=== PATIENT | male | born 1975 | race Caucasian/White ===

== ENCOUNTER 2025-05-02 09:54 | Observation (INO) | payer OTHER ==
[2025-05-01 10:49] LABS: IMMATURE GRANULOCYTE ABSOLUTE 0.02 K/uL (0-1); NUCLEATED RED BLOOD CELLS 0.0 % (0.0-0.19); PLATELET COUNT (AUTO) 204 K/uL (130-400); RED BLOOD CELL COUNT(AUTO) 4.79 MIL/uL (4.50-6.20); RED CELL DISTRIBUTION WIDTH 13.3 % (11.0-15.5); WHITE BLOOD COUNT (AUTO) 5.7 K/uL (4.8-10.8)
[2025-05-01 10:57] LABS: CREATININE 1.0 mg/dL (0.5-1.3); GLOMERULAR FILTR. RATE CALC 93.0 mL/min (>90); GLUCOSE,RANDOM 101.0 mg/dL (70-105); SODIUM SERUM 139.0 mmol/L (136-145); UREA NITROGEN, BLOOD 18.0 mg/dL (7-18)
[2025-05-01 10:58] LABS: APPEARANCE,URINE CLEAR (CLEAR); GLUCOSE, URINE (UA) NEGATIVE (NEGATIVE); LEUKOCYTE ESTERASE ,URINE NEGATIVE Leu/uL (NEGATIVE); NITRATE,URINE NEGATIVE (NEGATIVE); OCCULT BLOOD,URINE NEGATIVE (NEGATIVE)
[2025-05-01 10:59] LABS: INR 0.99 (0.85-1.15)
[2025-05-01 11:00] LABS: ADD UA MICROSCOPIC NO
[2025-05-01 11:39] VITALS: BP 144/90; PULSE 72; RESP 18; TEMP 98.6
--- NOTE | 2025-05-01 12:24 | NUR ---
PREOP LORETO RT INSTRUCTED PT ON INCENTIVE SPIROMETRY
[~2025-05-02] VITALS: Ht 190.5 cm; Wt 113.9 kg
[2025-05-02] VITALS (27 sets, daily range): BP systolic 96–132; BP diastolic 55–79; PULSE 68–107; RESP 12–19; TEMP 96.8–98.1; O2SAT 98
[~2025-05-02 09:54] MED LIST: ACET-2743 PO; ASPI-1443 PO; ATOR40TA71 PO; EMTR1TAB20 PO; ESCI-8 PO; HYDR-4060 PO; LISI10TA24 PO; MILK THISTLE PO
[2025-05-02] MEDS: LACTATED RINGERS 1000ML 1,000 ML IV ONE (10:04)
[2025-05-02] MEDS ORDERED: PROMETHAZINE HCL 25 MG/ML 1ML AMPULE IM PRN (11:00)
[2025-05-02] MEDS ORDERED: TRANEXAMIC ACID 1000MG/10ML ONE (12:46)
[2025-05-02] MEDS ORDERED: BUPIvacaine HCL/EPINEPHrine/PF 0.25% 10ML VIAL IJ ONE (12:47)
[2025-05-02] MEDS ORDERED: THROMBIN-JMI 5000 UNIT/VIAL TP ONE (12:47)
[2025-05-02] MEDS ORDERED: NEOSTIGMINE METHYLSULFATE 1MG/ML IV ONE (13:03)
[2025-05-02] MEDS ORDERED: GLYCOPYRROLATE 0.2 MG/ML 5 ML VIAL ONE (13:03)
[2025-05-02] MEDS ORDERED: LIDOCAINE PF 100MG/5ML (2%) SYRINGE 5ML ONE (13:03)
[2025-05-02] MEDS ORDERED: MIDAZOLAM HCL 1 MG/ML 2ML VIAL ONE (13:04)
--- NOTE | 2025-05-02 15:44 | OP ---
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 Chronic synovitis] IMPLANTS: [Alpine cemented patella size 40 by a tender 11 mm of] PROCEDURE: [Right knee arthrotomy, synovectomy and patellar resurfacing] ESTIMATED BLOOD LOSS: [50 mL] INDICATIONS: [The patient is a 49-year-old male with a history posttraumatic arthritis that underwent a cemented total knee arthroplasty without patellar resurfacing [place]. The patient presented to our office with severe pain to the right knee that was impairing his activities of the living a requiring the assistance of crutches to ambulate. The x-rays revealed the presence of severe wear of the patella with direct bone metal contact in the x-rays. The is brought to the operating room for patellar resurfacing. Procedure understood, risks, benefits and possible complications and the patient agreed to sign the consent form] DESCRIPTION OF PROCEDURE: [After adequate general anesthesia was achieved the patient's right lower extremity was prepped and draped in the usual manner previous cement of the tourniquet in the proximal thigh. The extremity was elevated and exsanguinated with a an Esmarch band and the tourniquet was inflated to 250 mmHg. The Esmarch band was removed and then we proceeded to address the anterior surgical scar with the patient were an incision was carried over almost the same length through the skin followed by dissection of the subcutaneous tissue the patella, quadriceps tendon and patellar retinaculum were exposed and we proceeded to do a medial parapatellar incision noticing immediately that the patient has a very significant chronic synovitis and scar tissue in the area. It distally we proceeded to remove all the chronic scar present in the area around the patella, distal femur and medial and lateral gutters. After this was achieved we were able to homero the patella and all the chronic synovial tissue was removed from the surrounding noticing the patient had complete were down to the bone in the lateral facet and a small medial facet. Evaluation of the remaining of the joint revealed that the components were adequately fixed the tibial liner demonstrated no damage and there was no laxity in valgus or varus. After the synovectomy and a scar excision was completed we proceeded to homero the patella and secured with a clamp. We measured its thickness and then measured the diameter and this measured approximately 43-45 mm. Using the ClairMail asymmetric patella which is a size 40 to cover most of the articular surface we proceeded to 1st do the cut with the oscillating saw removing the articular surface and portion of bone leaving a clean and smooth surface of healthy bone. The size 40 patellar guide was then used to make three drill holes in the patella surface and then we proceeded to apply the trial patella which fit adequately leaving just a very small amount of bone exposed medially and laterally. The patella was then reduced and the range of motion was checked noticing to be adequate with no patellar tilt or tightness present. The component was then removed irrigation was carried down of the joint and we proceeded to repair cement in the back table which was then placed in the bone surface and then the patellar component was inserted and secured with a patellar clamp which was left in place until the cement dried. Once this occur the tourniquet was deflated and the minor bleeders were controlled with the use of the Bovie cautery. Irrigation of the wound was then made with Betadine solution followed by jet lavage with the antibiotic irrigation. Then we proceeded to close the wound with a approximation of the quadriceps tendon, patellar retinaculum and patellar tendon retinaculum with Vicryl sutures in a crossed fashion. The subcutaneous tissue was then closed with 2-0 Monocryl inverted stitches and the skin with a stay in a approximated with 3-0 Monocryl subcuticularly. A suction dressing was then applied to cover the wound a connected to a battery. After this the drapes were removed anesthesia proceeded to do a regional block with the use of ultrasound. After this was completed the patient was transferred to his bed and taken to recovery room for follow-up by anesthesia after being awakened and extubated. There were no complications during the procedure.] TAMIKA CORTEZ MD May 02, 2025 15:44
[2025-05-02] MEDS ORDERED: PoTASSium chloRIDE 20MEQ ER 20 MEQ ERTAB PO PRN (16:00)
[2025-05-02] MEDS ORDERED: PoTASSium chl 10% ELIXIR 20MEQ 20 MEQ/15 ML UDCUP PO PRN (16:00)
[2025-05-02] MEDS: 0.9%NACL 1000ML 1,000 ML IV SCH (16:00)
[2025-05-02] MEDS: FAMOTIDINE 20MG TAB PO SCH (20:51)
[2025-05-02] MEDS: ASPIRIN 81 MG EC TAB PO SCH (20:52)
--- NOTE | 2025-05-02 23:53 | NUR ---
Pt. c/o being unable to void, uncomfortable, bladder scan performed; results of 845 ML.
--- NOTE | 2025-05-03 00:11 | NUR ---
Dr. Rivera notified @ this time of pt. being unable to void & bladder scan results of 845 ML.; orders to do an In & Out received.
--- NOTE | 2025-05-03 00:50 | NUR ---
In & Out procedure performed @ this time, per Miranda, 1200 + ML. of urine obtained @ this time; pt. tolerated procedure well.
[2025-05-03 03:45] VITALS: BP 105/66; PULSE 77; RESP 18; TEMP 97.8
--- NOTE | 2025-05-03 06:00 | NUR ---
Sundar bandage to (R) Knee removed @ this time as ordered, non-adherent pad dressing in place, dry & intact, pt. assisted to chair @ this time, made comfortable, tolerated well, call-light within easy reach; no c/o voiced out @ this time.
--- NOTE | 2025-05-03 06:52 | NUR ---
Pt. still unable to void, states feeling uncomfortable, Dr. Rivera notified; orders to re-insert go catheter received.
--- NOTE | 2025-05-03 07:10 | NUR ---
#16 FR. F/C inserted @ this time using sterile technique, procedure explained to pt. prior to insertion, verbalized understanding and agreed, taped & secured to pt., 900 ML. of salome-colored urine emptied out; pt. tolerated procedure well.
[2025-05-03 08:00] VITALS: BP 116/61; PULSE 89; RESP 18; TEMP 98.9; O2SAT 98
--- NOTE | 2025-05-03 08:04 | NUR ---
PAIN REASSESSMENT Patient ambulating in hallway with walker, Physical Therapist. Reports pain is much improved from initial reported pain assessment at 0800. Patient reports that this pain level (5/10) is a tolerable level. Will administer prn when patient returns to room after physical therapy.
[2025-05-03 11:42] VITALS: BP 100/51; PULSE 79; RESP 18; TEMP 98.3
--- NOTE | 2025-05-03 12:29 | NUR ---
DR. CORTEZ ROUNDING Physician at bedside. New orders to administer Toradol for pain management. Other prescribed pain medications to not be administered. Will anticipate orders for discontinuation of go catheter. If patient stable tomorrow, possibility for discharge to home. Pending voiding ability, patient may discharge with go. Patient verbalized understanding.
--- NOTE | 2025-05-03 15:18 | PN ---
POD # 1 VSS, afebrile. I was called last night at midnight and also at 6 am to be informed that patient had urinary retention and after straight cath it recurred, reason why he had FC placed. The patient did not report h/o prostate problems at office but states that he normally urinates a couple of times at night and that there is a strong history of prostate CA in his immediate family. He reports that he has an appointment to see Dr. Acharya in [facility] at the end of the month. Reports is pain is moderate to severe. He is being now given only toradol IV for pain control, which seems to be helping a lot. VSS, afebrile. Awake, alert and oriented Normal respiratory effort Surgical wound dressing intact, dry and clean Distal neurovascular intact. A: S/P Patella resurfacing arthroplasty Urinary retention Post-op P: Contnue PT, hold narcotics, added tamsulosin to treatment. Plan to remove FC pens and pencils repairer and observe and possible discharge tomorrow PM. Hold narcotics Vitals/Labs Vital Signs Date Time Temp Pulse Resp B/P (MAP) Pulse Ox O2 Delivery O2 Flow Rate FiO2 05/03/25 11:42 98.2 79 18 100/51 94 Room Air 05/02/25 20:00 0 21 Medications Current Medications Cefazolin Sodium 2 gm STK-MED ONCE .ROUTE; Start 05/02/25 at 10:04; Stop 05/02/25 at 10:05; Status DC Lactated Ringer's 1,000 ml @ As Directed STK-MED ONCE IV; Start 05/02/25 at 10:04; Stop 05/02/25 at 10:05; Status DC Ondansetron HCl 4 mg AD PRN IVP; Start 05/02/25 at 11:00; Stop 05/03/25 at 05:55; Status DC Metoclopramide HCl 10 mg AD PRN IVP; Start 05/02/25 at 11:00; Stop 05/03/25 at 05:55; Status DC Promethazine HCl 25 mg AD PRN IM; Start 05/02/25 at 11:00; Stop 05/03/25 at 05:55; Status DC Ketorolac Tromethamine 30 mg AD PRN IV; Start 05/02/25 at 11:00; Stop 05/03/25 at 05:55; Status DC Morphine Sulfate 2 mg AD PRN IVP Last administered on 05/02/25at 21:54; Start 05/02/25 at 11:00; Stop 05/03/25 at 05:55; Status DC Fentanyl Citrate 25 mcg Q5MIN PRN IVP Last administered on 05/02/25at 16:03; Start 05/02/25 at 11:00; Stop 05/03/25 at 05:55; Status DC Naloxone HCl 0.1 mg AD PRN IVP; Start 05/02/25 at 11:00; Stop 05/03/25 at 05:55; Status DC Tranexamic Acid 1,000 mg STK-MED ONCE .ROUTE; Start 05/02/25 at 12:46; Stop 05/02/25 at 12:47; Status DC Cefazolin Sodium 1 gm STK-MED ONCE .ROUTE; Start 05/02/25 at 12:46; Stop 05/02/25 at 12:47; Status DC Bupivacaine HCl/ Epinephrine Bitart 10 ml STK-MED ONCE IJ; Start 05/02/25 at 12:47; Stop 05/02/25 at 12:47; Status DC Thrombin 5,000 unit STK-MED ONCE TP; Start 05/02/25 at 12:47; Stop 05/02/25 at 12:47; Status DC Lidocaine HCl 100 mg STK-MED ONCE .ROUTE; Start 05/02/25 at 13:03; Stop 05/02/25 at 13:03; Status DC Ondansetron HCl 4 mg STK-MED ONCE .ROUTE; Start 05/02/25 at 13:03; Stop 05/02/25 at 13:03; Status DC Dexamethasone Sodium Phosphate 10 mg STK-MED ONCE .ROUTE; Start 05/02/25 at 13:03; Stop 05/02/25 at 13:03; Status DC Glycopyrrolate 1 mg STK-MED ONCE .ROUTE; Start 05/02/25 at 13:03; Stop 05/02/25 at 13:04; Status DC Propofol 200 mg STK-MED ONCE IV; Start 05/02/25 at 13:03; Stop 05/02/25 at 13:04; Status DC Neostigmine Methylsulfate 10 mg STK-MED ONCE IV; Start 05/02/25 at 13:03; Stop 05/02/25 at 13:04; Status DC Rocuronium [place] 50 mg STK-MED ONCE .ROUTE; Start 05/02/25 at 13:04; Stop 05/02/25 at 13:04; Status DC Fentanyl Citrate 100 mcg STK-MED ONCE .ROUTE; Start 05/02/25 at 13:04; Stop 05/02/25 at 13:04; Status DC Midazolam HCl 2 mg STK-MED ONCE .ROUTE; Start 05/02/25 at 13:04; Stop 05/02/25 at 13:04; Status DC Ephedrine Sulfate 50 mg STK-MED ONCE .ROUTE; Start 05/02/25 at 13:24; Stop 05/02/25 at 13:24; Status DC Cefazolin Sodium 1 gm STK-MED ONCE .ROUTE; Start 05/02/25 at 13:28; Stop 05/02/25 at 13:28; Status DC Fentanyl Citrate 100 mcg STK-MED ONCE .ROUTE; Start 05/02/25 at 13:42; Stop 05/02/25 at 13:42; Status DC Cefazolin Sodium 2 gm STK-MED ONCE IVPB Last administered on 05/02/25at 13:16; Start 05/02/25 at 13:16; Stop 05/02/25 at 13:51; Status DC Rocuronium [place] 50 mg STK-MED ONCE .ROUTE; Start 05/02/25 at 14:14; Stop 05/02/25 at 14:15; Status DC Fentanyl Citrate 100 mcg STK-MED ONCE .ROUTE; Start 05/02/25 at 16:02; Stop 05/02/25 at 16:03; Status DC Sodium Chloride 1,000 ml @ 100 mls/hr Q10H IV Last administered on 05/03/25at 04:32; Start 05/02/25 at 16:00; Stop 05/03/25 at 15:59 Polyethylene Glycol 17 gm DAILY PO Last administered on 05/03/25at 08:02; Start 05/03/25 at 09:00; Stop 06/02/25 at 08:59 Bisacodyl 10 mg DAILY PRN RC; Start 05/05/25 at 16:00; Stop 06/04/25 at 15:59 Ketorolac Tromethamine 15 mg Q6H PRN IV Last administered on 05/03/25at 09:21; Start 05/02/25 at 16:00; Stop 05/07/25 at 15:59 Famotidine 20 mg BID PO Last administered on 05/03/25at 08:02; Start 05/02/25 at 21:00; Stop 06/01/25 at 20:59 Tamsulosin HCl 0.4 mg DAILY PO Last administered on 05/03/25at 08:02; Start 05/03/25 at 09:00; Stop 06/02/25 at 08:59 Ondansetron HCl 4 mg Q6H PRN IVP; Start 05/02/25 at 16:00; Stop 06/01/25 at 15:59 Diphenhydramine HCl 25 mg Q6H PRN IVP; Start 05/02/25 at 16:00; Stop 06/01/25 at 15:59 Cefazolin Sodium 2 gm Q8H IVPB Last administered on 05/03/25at 04:57; Start 05/02/25 at 21:00; Stop 05/03/25 at 05:01; Status DC Potassium Chloride 100 ml @ 100 mls/hr AD PRN IV; Start 05/02/25 at 16:00; Stop 06/01/25 at 15:59 Potassium Chloride 20 meq AD PRN PO; Start 05/02/25 at 16:00; Stop 06/01/25 at 15:59 Potassium Chloride 20 meq AD PRN PO; Start 05/02/25 at 16:00; Stop 06/01/25 at 15:59 Celecoxib 200 mg BID PO Last administered on 05/03/25at 08:02; Start 05/02/25 at 21:00; Stop 06/01/25 at 20:59 Oxycodone HCl 5 mg Q4H PRN PO Last administered on 05/03/25at 11:56; Start 05/02/25 at 16:00; Stop 05/09/25 at 15:59 Oxycodone HCl 10 mg Q4H PRN PO Last administered on 05/03/25at 08:04; Start 05/02/25 at 16:00; Stop 05/09/25 at 15:59 Tramadol HCl 50 mg Q6H PRN PO; Start 05/02/25 at 16:00; Stop 05/07/25 at 15:59 Acetaminophen 1,000 mg Q8H PO Last administered on 05/03/25at 08:03; Start 05/02/25 at 16:00; Stop 06/01/25 at 15:59 Aspirin 81 mg BID PO Last administered on 05/03/25at 08:02; Start 05/02/25 at 21:00; Stop 06/01/25 at 20:59 Morphine Sulfate 2 mg STK-MED ONCE .ROUTE; Start 05/02/25 at 16:13; Stop 05/02/25 at 16:13; Status DC Tamsulosin HCl 0.4 mg DAILY PO; Start 05/04/25 at 09:00; Stop 05/03/25 at 12:09; Status DC TAMIKA CORTEZ MD May 03, 2025 15:18
[2025-05-03 16:00] VITALS: BP 103/55; PULSE 75; RESP 18; TEMP 97.9
--- NOTE | 2025-05-03 16:00 | NUR ---
MET W PT FOR DC PLANNING PATIENT IS , LIVES ALONE, LOST PARTNER LAST YEAR, ALL FAMILY OUT OF STATS DOES HAVE GOOD FRIEND HERE , ON FACE SHEET WILL PROVIDE TRANSPORT. HOME SAFE AND ACCESSIBLE. HAS CRUTCHES AND HAS BEEN USING THEM SUCCESSFULLY HOWEVER PT EVAL STATES WOULD NEED WALKER- FOR MORE SECURITY AND ESPECIALLY IF NEEDS TO GO HOME WITH [place] . PATIENT STATES HIS BOSS HAS A WALKER THAT HE COULD USE BUT WOULD NOT HAVE ACCESS TO IT FOR A COUPE OF DAYS, WILL ADVISE PATIENT THAT HE IS ABLE TO BORROW OURS ON DISCHARGE FOR A FEW DAYS UNTIL HE HAS ACCESS TO ANOTHER,
[2025-05-03 20:00] VITALS: O2SAT 97
[2025-05-03 20:28] VITALS: BP 124/64; PULSE 81; RESP 20; TEMP 98.2
[2025-05-04 00:07] VITALS: BP 107/60; PULSE 80; RESP 20; TEMP 98.5
[2025-05-04 03:50] VITALS: BP 104/57; PULSE 82; RESP 18; TEMP 98.1
--- NOTE | 2025-05-04 06:10 | NUR ---
DC Go Prior to removal of go patient was medicated with torodol 15 mg for pain with no signs of distress. Pt aware of needing to void within 6 hours.
[2025-05-04 08:12] VITALS: BP 124/78; PULSE 67; RESP 18; TEMP 98.3
--- NOTE | 2025-05-04 10:50 | NUR ---
DUE TO VOID Patient voided in toilet. 400mL. Dr Rivera notified. Will anticipate discharge orders for today. Miguel at bedside educating patient on discharge plan, instruction, care, and follow up.
[2025-05-04] MEDS ORDERED: ASPI-1443 PO (12:08)
[2025-05-04] MEDS ORDERED: OXYC-38 PO (12:08)
--- NOTE | 2025-05-04 12:23 | DS ---
DISCHARGE SUMMARY [Date of admission: 05/02/2025 Date of discharge: 05/04/2025 Final diagnosis: Right patellar osteoarthritis, history of total knee arthroplasty without resurfacing of the patella. Postoperative urinary retention Surgical procedures: Right knee patellar resurfacing arthroplasty Summary of History and Physical: The patient is a 49 year-old male with history of severe posttraumatic arthrosis of the right knee that was treated a couple of years ago with a total knee arthroplasty without the resurfacing of the patella. The patient gradually started developing severe pain to the patella area to the point that affected his activities of the daily living and required the use of crutches to ambulate. The patient was evaluated in our office and it was found that his patella has a very severe osteoarthrosis and the patient has been admitted for resurfacing of the patella. Previous medical history: Hyperlipidemia, stroke/TIA, hypertension, osteoarthritis Previous surgical history: Rotator cuff tear repair, cholecystectomy, tonsillectomy, present right total knee arthroplasty 2021 Family history: Kidney failure, heart disease, Parkinson's disease, dementia Social history: Negative for use of tobacco or alcohol. Allergies: NKDA. Review of system: Negative on admission Hospital course: The patient was admitted and taken to the operating room for a right knee resurfacing arthroplasty of the patella, procedure that went uneventful. Postoperatively the patient remained hemodynamically stable and afebrile. The patient received antibiotic and anticoagulation prophylaxis as per protocol. He did develop urinary retention the night of the surgery that required 1st straight cath and the next morning the placement of a Muhammad catheter. The patient's narcotics were stopped and he was placed only on Toradol IV for pain control and on the morning of postop day 2. The Muhammad catheter was removed and the patient was able to void with no difficulty soon after. The patient was evaluated by physical therapy and started rehabilitation treatment with ambulation with the use of walker, weightbearing as tolerated, range of motion exercises and bed transfers. The patient was also evaluated by case management and arrangements were made for discharge. The patient tolerated diet well. On postop day #2 all the arrangements were completed. The dressing was changed and the wound was noted to be stable and the patient was dismissed. Condition on discharge: Good Disposition: The patient will be dismissed home. Our office is arranging physical therapy in his hometown to do rehabilitation as an outpatient. Follow- up will be done at the office in 3 weeks. The patient is to continue with phys ical therapy and rehabilitation at [facility] physical therapy and be ambulatory with the use of a walker, weightbearing as tolerated. Continue taking pain medication as instructed as well as anticoagulation prophylaxis. Continue with home medications also as instructed and continue with pre admission diet.] TAMIKA CORTEZ MD May 04, 2025 12:23
[2025-05-04 12:42] VITALS: BP 121/66; PULSE 81; RESP 14; TEMP 98.7
--- NOTE | 2025-05-04 16:12 | NUR ---
DISCHARGE NOTE IV and ID bands removed. Discharge instructions reviewed with patient. Personal belongings packed and taken by friend. Patient wheeled to first floor in wheelchair to personal vehicle.
== END 2025-05-04 16:15 | disposition home or self-care (01) ==
LOC: DAH 09:54 → DAHIP 09:55 → DAH 09:55 → 4AH 17:00
PROVIDERS: ADMIT Orthopaedic Surgery; ATTEND Orthopaedic Surgery
DX: M17.11 Unilateral primary osteoarthritis, right knee (principal); M25.561 Pain in right knee; I10 Essential (primary) hypertension; E78.5 Hyperlipidemia, unspecified; M17.31 Unilateral post-traumatic osteoarthritis, right knee; M65.90 Unspecified synovitis and tenosynovitis, unspecified site; Z79.899 Other long term (current) drug therapy; Z98.890 Other specified postprocedural states
CPT/HCPCS: 80048; 85025; 85610; 87086; 81003; 36415; 87641; 27438; 96365; 96366 ×2; 96375; 88311; 88304; 96376 ×2; 97161; 97116 ×4; 97530 ×8; C1713 ×2; G0378 ×48; A4663; J7030; J7120; J3010 ×3; J0690 ×6; J1100; J2270 ×2; J3490 ×4; J2003; J2250; J2704; J2405; J2710; J1885 ×6; A9272; A4649 ×3; A4930 ×2; A5120 ×2; A4215; A4223 ×2; A4213; A4222; A4221; A4216